=== PATIENT | male | born 1990 | race Two or more races ===

== ENCOUNTER 2017-06-09 23:06 | Emergency (ER) | payer OTHER ==
[~2017-06-09] VITALS: Ht 177.8 cm; Wt 85.3 kg
[2017-06-09 23:19] VITALS: BP 153/97
--- NOTE | 2017-06-09 23:53 | Emergency Room Report ---
History of Present Illness General Chief Complaint: Upper Extremity Injury Source: Patient Present Illness HPI Is a 26-year-old male with no past medical history. He is right-hand dominant. He presents with shoulder pain. Yesterday at work he jumped over some boxes and landed on the truck and hit the ground. He complaining of right shoulder pain. He thought it may be dislocated because he felt some cracking when he moves his shoulder. No other injury. Pain is 5/10. Worse with certain movement. No loss of consciousness. Allergies: Coded Allergies: No Known Allergies (Unverified , 06/09/17) Patient History Past Medical History: none, see triage record, old chart reviewed Past Surgical History: none Pertinent Family History: none Social History: Denies: smoking Immunizations: other Reviewed Nursing Documentation: PMH: Agreed, PSxH: Agreed Nursing Documentation-PMH Past Medical History: No Stated History Review of Systems Eye: Denies: eye pain, blurred vision ENT: Denies: ear pain, nose congestion, throat swelling Respiratory: Denies: cough, shortness of breath Cardiovascular: Denies: chest pain, palpitations Gastrointestinal: Denies: abdominal pain, diarrhea, nausea, vomiting Musculoskeletal: Reports: joint pain, Denies: back pain Skin: Denies: rash Neurological: Denies: headache, numbness Endocrine: Denies: increased thirst, increased urine Hematologic/Lymphatic: Denies: easy bruising All Other Systems: negative except mentioned in HPI Physical Exam Vital Signs Date Time Temp Pulse Resp B/P (MAP) Pulse Ox O2 Delivery O2 Flow Rate FiO2 06/09/17 23:12 98.1 92 16 153/97 100 Room Air vitals unremarkable except high blood pressure Sp02 EP Interpretation: reviewed, normal General Appearance: well appearing, no apparent distress, alert Head: normocephalic, atraumatic Eyes: bilateral eye PERRL, bilateral eye EOMI ENT: hearing grossly normal, normal pharynx Neck: full range of motion, supple, no meningismus Respiratory: chest non-tender, lungs clear, normal breath sounds Cardiovascular #1: regular rate, rhythm, no murmur Gastrointestinal: normal bowel sounds, non tender, no mass, no organomegaly, no bruit, non-distended Musculoskeletal: back normal, gait/station normal, normal range of motion, tender - Full range of motion the right shoulder. Sensation normal. Mild tenderness diffusely. Psychiatric: mood/affect normal Skin: warm/dry Medical Decision Making Diagnostic Impression: Primary Impression: Contusion of right shoulder Qualified Codes: S40.011A - Contusion of right shoulder, initial encounter ER Course Patient with right shoulder contusion. No fracture dislocation. We'll discharge home. Other X-Ray Diagnostic Results Other X-Ray Diagnostic Results : X-Ray ordered: Right shoulder xray # of Views/Limited Vs Complete: 3 View Indication: Pain EP Interpretation: Yes Interpretation: no dislocation, no soft tissue swelling, no fractures Impression: No acute disease Electronically Signed by: Paras Pascal MD Last Vital Signs Date Time Temp Pulse Resp B/P (MAP) Pulse Ox O2 Delivery O2 Flow Rate FiO2 06/09/17 23:19 98.0 92 16 153/97 100 Room Air Status: improved Disposition: HOME, SELF-CARE Condition: Stable Patient Instructions: CONTUSION, Upper Extremity Additional Instructions: Followup with Worker's CompJanessa Lama within 7 days as needed. Return if symptom worsen. PARAS PASCAL M.D. Jun 09, 2017 23:53
[2017-06-10 00:43] VITALS: BP 153/97
--- NOTE | 2017-06-10 12:46 | Diagnostic Imaging Report ---
Indication: Pain Findings: 3 views of the right shoulder were obtained. No acute fractures, malalignment, erosions or periostitis are identified. Soft tissues are unremarkable. Impression: Negative for acute injury
== END 2017-06-10 00:44 | disposition home or self-care (01) ==
LOC: EMR 06-10 00:10
DX: S40.011A Contusion of right shoulder, initial encounter (principal); W18.30XA Fall on same level, unspecified, initial encounter; Y92.9 Unspecified place or not applicable; Y99.0 Civilian activity done for income or pay
CPT/HCPCS: 99283

== ENCOUNTER 2020-04-22 22:37 | Emergency (ER) | payer MEDICAID, OTHER ==
[~2020-04-22] VITALS: Ht 177.8 cm; Wt 99.8 kg
--- NOTE | 2020-04-22 22:56 | Emergency Room Report ---
History of Present Illness General Chief Complaint: Lower Extremity Injury Source: Patient Present Illness HPI This is a 29-year-old male with no past medical history. He presents with chief complaint of left foot swelling and redness. Onset about a week. Unknown trauma. No pain. Redness is getting worse. Foot getting more swollen. Tracking up to his ankle area. Denies any fever chills but denies any nausea vomiting. No drainage. No aggravating factor. Allergies: Coded Allergies: No Known Allergies (Unverified , 06/09/17) COVID-19 Screening Contact w/high risk pt: No Experienced COVID-19 symptoms?: No COVID-19 Testing performed NURSING STUDENT: No Patient History Past Medical History: see triage record, old chart reviewed Past Surgical History: none Pertinent Family History: none Social History: Denies: smoking Immunizations: other Reviewed Nursing Documentation: PMH: Agreed; PSxH: Agreed Nursing Documentation-PMH Past Medical History: No Stated History Review of Systems Eye: Denies: eye pain, blurred vision ENT: Denies: ear pain, nose congestion, throat swelling Respiratory: Denies: cough, shortness of breath Cardiovascular: Denies: chest pain, palpitations Gastrointestinal: Denies: abdominal pain, diarrhea, nausea, vomiting Musculoskeletal: Reports: other; Denies: back pain, joint pain Skin: Denies: rash Neurological: Denies: headache, numbness Endocrine: Denies: increased thirst, increased urine Hematologic/Lymphatic: Denies: easy bruising All Other Systems: negative except mentioned in HPI Physical Exam Vital Signs Date Time Temp Pulse Resp B/P (MAP) Pulse Ox O2 Delivery O2 Flow Rate FiO2 04/22/ 22:43 98.1 105 22 165/102 (123) 96 Room Air Vitals with high blood pressure Sp02 EP Interpretation: reviewed, normal General Appearance: well appearing, no apparent distress, alert Head: normocephalic, atraumatic Eyes: bilateral eye PERRL, bilateral eye EOMI ENT: hearing grossly normal, normal pharynx Neck: full range of motion, supple, no meningismus Respiratory: chest non-tender, lungs clear, normal breath sounds Cardiovascular #1: regular rate, rhythm, no murmur Gastrointestinal: normal bowel sounds, non tender, no mass, no organomegaly, no bruit, non-distended Musculoskeletal: back normal, normal range of motion, gait/station normal, other - Left foot: There is there is diffuse erythema to the dorsum of the foot up to the ankle area. No pitting edema. Mild warmth. He does have severe onychomycosis. Pulse normal. Psychiatric: mood/affect normal Medical Decision Making Diagnostic Impression: Primary Impression: Cellulitis of left foot Additional Impressions: Onychomycosis Elevated blood pressure reading ER Course Patient presents with left foot redness. Suspect he has infection in the nidus is probably secondary to severe onychomycosis. No evidence of any abscess. No crepitance. No fracture or dislocation. Will discharge home with antibiotics. Blood pressure improved. He has no blood pressure problem. Will recommend follow-up in a week for recheck. Other X-Ray Diagnostic Results Other X-Ray Diagnostic Results : X-Ray ordered: Left foot x-rays # of Views/Limited Vs Complete: 3 View Indication: Pain EP Interpretation: Yes Interpretation: no dislocation, no soft tissue swelling, no fractures Impression: No acute disease Electronically Signed by: Paras Pascal MD Last Vital Signs Date Time Temp Pulse Resp B/P (MAP) Pulse Ox O2 Delivery O2 Flow Rate FiO2 04/22/20 22:43 98.1 105 22 165/102 (123) 96 Room Air Status: improved Disposition: HOME, SELF-CARE Condition: Stable Scripts Cephalexin* (KEFLEX*) 500 Mg Capsule 500 MG ORAL TID, #21 CAP Prov: Paras Pascal MD 04/22/20 Trimethoprim/Sulfamethoxazole 160/800* (BACTRIM DS TABLET*) 1 Each Tablet 1 TAB ORAL Q12H, #14 TAB 0 Refills Prov: Paras Pascal MD 04/22/20 Referrals: [facility],REFERRING (PCP) Additional Instructions: Keep foot clean. Follow-up your doctor in 7 days for recheck on your infection and elevated blood pressure. Return if worse. Paras Pascal MD Apr 22, 2020 22:56
[2020-04-22] MEDS ORDERED: Cephalexin 500mg cap ORAL ONE (23:00)
[2020-04-22] MEDS ORDERED: Bactrim-DS 1 tab ORAL ONE (23:00)
--- NOTE | 2020-04-22 23:10 | Diagnostic Imaging Report ---
EXAM: XR Left Foot Complete, 3 or More Views CLINICAL HISTORY: PAIN TECHNIQUE: Frontal, lateral and oblique views of the left foot. COMPARISON: No relevant prior studies available. FINDINGS: Bones/joints: No acute fracture. Soft tissues: Soft tissue swelling and edema. No radiodense foreign body. IMPRESSION: No acute fracture.
[2020-04-22] MEDS ORDERED: BACTRIM DS TAB1 EAC1 ORAL (23:14)
[2020-04-22] MEDS ORDERED: CEPHALEXIN500 MG ORAL (23:14)
[2020-04-22 23:19] VITALS: BP 140/104
== END 2020-04-22 23:20 | disposition home or self-care (01) ==
LOC: EMR 22:51
DX: L03.116 Cellulitis of left lower limb (principal); B35.1 Tinea unguium; R03.0 Elevated blood-pressure reading, without diagnosis of hypertension
CPT/HCPCS: 73630; 82962; Z7502; 99284